=== PATIENT | female | born 1975 | race Asian ===

== ENCOUNTER 2018-12-27 10:42 | Outpatient (CLI) | payer OTHER | END 2018-12-27 20:18 | disposition home or self-care (01) | LOC: MAMMO 10:42 | DX: Z12.31 Encounter for screening mammogram for malignant neoplasm of breast (principal); N64.59 Other signs and symptoms in breast ==

== ENCOUNTER 2019-01-16 10:30 | Outpatient (CLI) | payer OTHER | END 2019-01-16 22:45 | disposition home or self-care (01) | LOC: MAMMO 10:30 | DX: N64.59 Other signs and symptoms in breast (principal); Z12.31 Encounter for screening mammogram for malignant neoplasm of breast ==

== ENCOUNTER 2019-02-09 10:42 | Outpatient (CLI) | payer OTHER | END 2019-02-09 23:50 | disposition home or self-care (01) | LOC: US 10:42 | DX: M79.602 Pain in left arm (principal) ==

== ENCOUNTER 2019-02-10 10:39 | Outpatient (CLI) | payer OTHER | END 2019-02-10 21:39 | disposition home or self-care (01) | LOC: US 10:39 | DX: M79.602 Pain in left arm (principal) ==

== ENCOUNTER 2019-04-19 10:54 | Outpatient (CLI) | payer OTHER | END 2019-04-19 19:32 | disposition home or self-care (01) | LOC: RAD 10:54 | DX: M79.602 Pain in left arm (principal); M54.12 Radiculopathy, cervical region ==

== ENCOUNTER 2019-07-24 10:42 | Outpatient (CLI) | payer OTHER | END 2019-07-24 21:08 | disposition home or self-care (01) | LOC: MAMMO 10:42 | DX: N64.59 Other signs and symptoms in breast (principal); Z12.31 Encounter for screening mammogram for malignant neoplasm of breast ==

== ENCOUNTER 2020-05-07 11:29 | Outpatient (CLI) | payer OTHER | END 2020-05-07 23:53 | disposition home or self-care (01) | LOC: CT 11:29 | DX: M54.2 Cervicalgia (principal); R51 Headache ==

== ENCOUNTER 2020-05-24 10:04 | Outpatient (CLI) | payer OTHER | END 2020-05-24 23:28 | disposition home or self-care (01) | LOC: CT 10:04 | DX: H53.9 Unspecified visual disturbance (principal); R42 Dizziness and giddiness; Z98.2 Presence of cerebrospinal fluid drainage device ==

== ENCOUNTER 2020-07-29 09:27 | Outpatient (CLI) | payer OTHER | END 2020-07-29 19:04 | disposition home or self-care (01) | LOC: MAMMO 09:27 | PROVIDERS: ATTEND Nurse Practitioner | DX: Z12.31 Encounter for screening mammogram for malignant neoplasm of breast (principal) ==

== ENCOUNTER 2020-10-03 13:10 | Emergency (ER) | payer OTHER ==
[~2020-10-03] VITALS: Ht 170.2 cm; Wt 173.3 kg
[2020-10-03 13:15] VITALS: TEMP 98.6
[2020-10-03 14:11] LABS: PLATELET COUNT 143 K/uL (152-353)
[2020-10-03 14:20] LABS: SODIUM 140 mmol/L (136-145)
[2020-10-03 18:05] VITALS: BP 112/74
== END 2020-10-03 18:05 | disposition home or self-care (01) ==
LOC: ED 13:10
PROVIDERS: Emergency Medicine Emergency Medical Services
DX: I48.91 Unspecified atrial fibrillation (principal)
CPT/HCPCS: 36415; 80053; 84443; 84484; 85027; 93005; 96360; 96375; 99284; J3490

== ENCOUNTER 2020-11-27 11:11 | Outpatient (CLI) | payer OTHER | END 2020-11-27 22:01 | disposition home or self-care (01) | LOC: RESP 11:11 | PROVIDERS: ATTEND Internal Medicine Cardiovascular Disease | DX: I48.91 Unspecified atrial fibrillation (principal) ==

== ENCOUNTER 2021-02-11 11:00 | Outpatient (CLI) | payer OTHER ==
[2021-02-11 11:22] LABS: POTASSIUM 3.2 mmol/L (3.6-5.2)
== END 2021-02-11 22:43 | disposition home or self-care (01) ==
LOC: LABW 11:00
PROVIDERS: ATTEND Internal Medicine Cardiovascular Disease
DX: Z79.899 Other long term (current) drug therapy (principal)
CPT/HCPCS: 36415; 80048

== ENCOUNTER 2021-08-21 14:47 | Outpatient (CLI) | payer OTHER | END 2021-08-21 19:28 | disposition home or self-care (01) | LOC: US 14:47 | PROVIDERS: ATTEND Internal Medicine | DX: E05.80 Other thyrotoxicosis without thyrotoxic crisis or storm (principal) ==

== ENCOUNTER 2021-09-10 10:43 | Outpatient (CLI) | payer OTHER | END 2021-09-10 20:00 | disposition home or self-care (01) | LOC: CT 10:43 | PROVIDERS: ATTEND Internal Medicine | DX: M51.36 Other intervertebral disc degeneration, lumbar region (principal) ==

== ENCOUNTER 2022-04-13 08:24 | Outpatient (CLI) | payer OTHER | END 2022-04-13 18:56 | disposition home or self-care (01) | LOC: RAD 08:24 | PROVIDERS: ATTEND Internal Medicine | DX: M54.6 Pain in thoracic spine (principal) ==

== ENCOUNTER 2022-04-22 10:32 | Outpatient (CLI) | payer OTHER | END 2022-04-22 20:00 | disposition home or self-care (01) | LOC: MAMMO 10:32 | PROVIDERS: ATTEND Nurse Practitioner | DX: Z12.31 Encounter for screening mammogram for malignant neoplasm of breast (principal) ==

== ENCOUNTER 2022-06-24 08:39 | Outpatient (CLI) | payer OTHER | END 2022-06-24 19:28 | disposition home or self-care (01) | LOC: US 08:39 | PROVIDERS: ATTEND Internal Medicine | DX: D17.1 Benign lipomatous neoplasm of skin and subcutaneous tissue of trunk (principal) ==

== ENCOUNTER 2022-08-26 10:48 | Outpatient (CLI) | payer OTHER | END 2022-08-26 20:14 | disposition home or self-care (01) | LOC: US 10:48 | PROVIDERS: ATTEND Internal Medicine | DX: E05.80 Other thyrotoxicosis without thyrotoxic crisis or storm (principal) ==

== ENCOUNTER 2023-02-23 11:39 | Outpatient (CLI) | payer OTHER | END 2023-02-23 19:10 | disposition home or self-care (01) | LOC: RAD 11:39 | PROVIDERS: ATTEND Internal Medicine | DX: M25.511 Pain in right shoulder (principal) ==

== ENCOUNTER 2023-10-13 10:31 | Day surgery (SDC) | payer OTHER ==
[~2023-10-13] VITALS: Ht 165.1 cm; Wt 63.5 kg
[~2023-10-13 10:31] MED LIST: DEXMEDETOMIDINE HCL IN SODIUM 4 MCG/ML INJ INJ ONE; LACTATED RINGER'S 1,000 ML IV ONE; STERILE WATER IR ONE
[2023-10-13] MEDS ORDERED: LACTATED RINGER'S 1,000 ML IV ONE (11:04)
[2023-10-13] MEDS ORDERED: PROPOFOL 10MG/ML 20ML INJ IV ONE (16:11)
== END 2023-10-13 13:40 | disposition home or self-care (01) ==
LOC: OR 10:31
PROVIDERS: ATTEND Internal Medicine Gastroenterology
DX: Z12.11 Encounter for screening for malignant neoplasm of colon (principal); K57.30 Diverticulosis of large intestine without perforation or abscess without bleeding; K64.8 Other hemorrhoids; Z86.010 Personal history of colon polyps
CPT/HCPCS: J2704; J7120